=== PATIENT | female | born 1985 | race Caucasian/White ===

== ENCOUNTER 2021-05-09 20:23 | Emergency (ER) | payer MEDICAID ==
[~2021-05-09] VITALS: Ht 157.5 cm; Wt 101.6 kg
[2021-05-09 20:39] VITALS: BP_SYST 124
[2021-05-10] MEDS ORDERED: LIDOCAINE PATCH 5% 1 EA TP ONE ×2 (05:30→05:38)
[2021-05-10] MEDS ORDERED: KETOROLAC TROMETHAMINE 30 MG VIAL IM ONE (05:30)
[2021-05-10] MEDS ORDERED: CYCLOBENZAPRINE HCL 10 MG TABLET (FLEXERIL) PO ONE (05:30)
[2021-05-10] MEDS ORDERED: LIDO1ADH5 TP (05:49)
[2021-05-10] MEDS ORDERED: CYCL10TA24 PO (05:51)
[2021-05-10 06:01] VITALS: BP_SYST 127
== END 2021-05-10 06:00 | disposition home or self-care (01) ==
LOC: SED 20:23
DX: S16.1XXA Strain of muscle, fascia and tendon at neck level, initial encounter (principal); S80.01XA Contusion of right knee, initial encounter; Z88.6 Allergy status to analgesic agent; Z79.899 Other long term (current) drug therapy; W18.39XA Other fall on same level, initial encounter; Y93.89 Activity, other specified; Y92.89 Other specified places as the place of occurrence of the external cause; Y99.8 Other external cause status
CPT/HCPCS: 96372; 99283; J1885

== ENCOUNTER 2021-08-01 19:36 | Emergency (ER) | payer MEDICAID, SELFPAY ==
[~2021-08-01] VITALS: Ht 157.5 cm; Wt 97.5 kg
[~2021-08-01 19:36] MED LIST: CYCL10TA24 PO; LIDO1ADH5 TP
[2021-08-01 21:48] VITALS: BP_SYST 122
--- NOTE | 2021-08-02 03:00 | NUR ---
Called pt, no answer. Patient left without being seen. ER MD aware
[2021-08-02] MEDS ORDERED: BACL10TA PO (15:56)
[2021-08-02] MEDS ORDERED: ACET-2634 PO (15:56)
[2021-08-02] MEDS ORDERED: PRED20TA PO (15:56)
== END 2021-08-02 03:00 | disposition left against medical advice (07) ==
LOC: SED 19:36
DX: F41.9 Anxiety disorder, unspecified (principal); R11.2 Nausea with vomiting, unspecified; Z53.21 Procedure and treatment not carried out due to patient leaving prior to being seen by health care provider

== ENCOUNTER 2021-08-02 12:15 | Emergency (ER) | payer MEDICAID, SELFPAY ==
[~2021-08-02] VITALS: Ht 157.5 cm; Wt 97.5 kg
[2021-08-02 12:31] VITALS: BP_SYST 135
--- NOTE | 2021-08-02 12:31 | NUR ---
PT TRIAGED AND PLACED IN WAITING ROOM FOR AVAILABLE BED
--- NOTE | 2021-08-02 12:40 | NUR ---
PT CAME IN FROM FOR CHRONIC NECK PAIN AND LEFT SIDED ARM PAIN. PT IS AMBULATORY, [id number], VSS
--- NOTE | 2021-08-02 14:21 | NUR ---
ER at bedside examining patient.
[2021-08-02] MEDS ORDERED: FAMOTIDINE PF 20 MG/2 ML VIAL IVP ONE (14:30)
[2021-08-02] MEDS ORDERED: DIPHENHYDRAMINE INJ 50 MG/ML VIAL IVP ONE (14:30)
[2021-08-02] MEDS ORDERED: methylPREDNISolone SOD SUCC/PF 62.5 MG/ML VIAL IVP ONE (14:30)
[2021-08-02] MEDS ORDERED: MORPHINE 2 MG/ML INJ. SYRINGE IM ONE (14:45)
[2021-08-02] MEDS ORDERED: ACETAMINOPHEN 500 MG TABLET PO ONE (14:45)
[2021-08-02] MEDS ORDERED: PRED20TA PO (15:56)
[2021-08-02] MEDS ORDERED: BACL10TA PO (15:56)
[2021-08-02] MEDS ORDERED: ACET-2634 PO (15:56)
[2021-08-02 16:14] VITALS: BP_SYST 154
--- NOTE | 2021-08-02 16:15 | NUR ---
Patient given written and verbal discharge instructions and verbalizes understanding. ER Dr. Dubon discussed with patient the results and treatment provided. Patient in stable condition. ID arm band removed. Rx of Extra strenght Tylenol, Baclofen and Prednisone given. Patient educated on pain management and to follow up with PMD. Pain Scale 6. Opportunity for questions provided and answered. Medication side effect fact sheet provided.
== END 2021-08-02 16:15 | disposition home or self-care (01) ==
LOC: SED 12:15
DX: S16.1XXA Strain of muscle, fascia and tendon at neck level, initial encounter (principal); G89.29 Other chronic pain; M54.6 Pain in thoracic spine; Z88.6 Allergy status to analgesic agent; Z88.8 Allergy status to other drugs, medicaments and biological substances; Z79.899 Other long term (current) drug therapy; X50.9XXA Other and unspecified overexertion or strenuous movements or postures, initial encounter; Y93.89 Activity, other specified; Y92.89 Other specified places as the place of occurrence of the external cause; Y99.8 Other external cause status
CPT/HCPCS: 96372; 99283; J2270

== ENCOUNTER 2022-01-25 21:52 | Emergency (ER) | payer MEDICAID ==
[~2022-01-25] VITALS: Ht 157.5 cm; Wt 101.6 kg
[~2022-01-25 21:52] MED LIST changes: +ACET-2634 PO; +BACL10TA PO; +PRED20TA PO
--- NOTE | 2022-01-25 22:13 | NUR ---
Pt to ER via EMS from [facility] w/ c/o Right flank pain, RLQ abdominal pain 6/10 w/ generalized body aches, pt denies fevers, pt denies N/V/D, Pt states she has had dysuria x 2 days. Normal skin color for ethnicity. Respirations even and unlabored.
[2022-01-25 22:15] VITALS: BP_SYST 136
[2022-01-25] MEDS ORDERED: ACETAMINOPHEN 500 MG TABLET PO ONE (23:00)
[2022-01-25 23:35] LABS: BASOPHILS # (AUTO) 0.1 K/uL (0.0-0.2); BASOPHILS % (AUTO) 0.6 % (0.0-2.0); EOSINOPHILS # (AUTO) 0.2 K/uL (0.0-0.4); EOSINOPHILS % (AUTO) 3.1 % (0.0-4.0); HEMOGLOBIN 12.1 g/dL (12.0-16.0); LYMPHOCYTES # (AUTO) 2.3 K/uL (1.0-5.5); LYMPHOCYTES % (AUTO) 29.1 % (20.5-51.5); MEAN CORPUSCULAR HEMOGLOBIN 30 pg (27-31); MEAN CORPUSCULAR HGB CONC 34 % (32-36); MEAN CORPUSCULAR VOLUME 88 fL (79.0-98.0); MONOCYTES # (AUTO) 0.5 K/uL (0.0-1.0); MONOCYTES % (AUTO) 6.1 % (1.7-9.3); NEUTROPHILS # (AUTO) 4.7 K/uL (1.8-7.7); NEUTROPHILS % (AUTO) 61.1 % (40.0-70.0); PLATELET COUNT (AUTO) 359 K/uL (130-430); RED BLOOD CELL COUNT(AUTO) 4.07 MIL/uL (4.2-6.2); RED CELL DISTRIBUTION WIDTH 13.6 % (9.0-15.0); WHITE BLOOD COUNT (AUTO) 7.8 K/uL (4.8-10.8)
[2022-01-25 23:40] LABS: CALCIUM 8.7 mg/dL (8.4-11.0); CREATININE 0.72 mg/dL (0.55-1.30); POTASSIUM 3.6 mmol/L (3.5-5.1)
[2022-01-25 23:52] LABS: ALBUMIN 2.9 g/dL (3.4-4.8); TOTAL BILIRUBIN 0.3 mg/dL (0.0-1.0)
[2022-01-26] MEDS ORDERED: ACETAMINOPHEN 500 MG TABLET ONE (01:15)
[2022-01-26 02:27] LABS: BILIRUBIN,URINE NEGATIVE (NEGATIVE); CLARITY/URINE CLEAR (CLEAR); COLOR,URINE YELLOW (YELLOW); GLUCOSE,URINE NEGATIVE (NEGATIVE); KETONES,URINE NEGATIVE (NEGATIVE); LEUKOCYTE ESTERASE ,URINE NEGATIVE (NEGATIVE); NITRITE, URINE NEGATIVE (NEGATIVE); PROTEIN URINE NEGATIVE (NEGATIVE); UROBILINOGEN,URINE 0.2 (0.2-1.0)
[2022-01-26 02:29] LABS: BLOOD, URINE TRACE (NEGATIVE)
[2022-01-26 02:41] LABS: BACTERIA,URINE FEW /HPF (None Seen); RBC,URINE 0-3 /HPF (0-3); WBC,URINE 0-3 /HPF (0-3)
[2022-01-26] MEDS ORDERED: HYDR-3917 PO (04:52)
--- NOTE | 2022-01-26 07:30 | NUR ---
Report received from James WYNN; assumed cares at this time.
[2022-01-26 07:44] VITALS: BP_SYST 126
--- NOTE | 2022-01-26 08:50 | NUR ---
Report from Leeanna- jerman apparently discharged- however waiting for ambulance that will arrive at noon.
--- NOTE | 2022-01-26 09:18 | NUR ---
Patient stated that she needed to use the bathroom- placed on bedpan.
--- NOTE | 2022-01-26 09:20 | NUR ---
Given diabetic diet
--- NOTE | 2022-01-26 10:43 | NUR ---
Report to Rox WYNN- bernarda to send back.
== END 2022-01-26 12:00 | disposition home or self-care (01) ==
LOC: SED 21:52
DX: M54.50 Low back pain, unspecified (principal); G89.29 Other chronic pain; R10.31 Right lower quadrant pain; R35.89 Other polyuria; Z88.2 Allergy status to sulfonamides; Z88.6 Allergy status to analgesic agent; Z79.899 Other long term (current) drug therapy
CPT/HCPCS: 36415; 76376; 80053; 81000; 81025; 84702; 84703; 85025; 99284

== ENCOUNTER 2022-03-17 02:38 | Emergency (ER) | payer MEDICAID ==
[~2022-03-17] VITALS: Ht 157.5 cm; Wt 104.3 kg
[~2022-03-17 02:38] MED LIST changes: +HYDR-3917 PO
[2022-03-17 02:41] VITALS: BP_SYST 131
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
--- NOTE | 2022-03-17 03:22 | NUR ---
DR RODRIGUEZ AT BEDSIDE SPEAKING WITH PT, PT CRYING AND NOT WANTING TO ANSWER HIS QUESTIONS.
--- NOTE | 2022-03-17 03:31 | NUR ---
PT WANTS TO LEAVE, INSTRUCTING PT ON RISK OF LEAVING AMA, PT VERBALIZED, PT REFUSED TO SIGN AMA FORM.
--- NOTE | 2022-03-17 03:38 | NUR ---
Patient does not wish to proceed with medical care recommended by DR RODRIGUEZ. Patient given information related to possible complications, up to and including , which could occur as a result of leaving hospital at this time. Patient verbalizes understanding of risks involved leaving against medical advice. Patient has REFUSED TO signed AMA form.
[2022-03-18] MEDS ORDERED: ONDANSETRON 4 MG ODT TAB ONE (21:15)
== END 2022-03-17 03:38 | disposition left against medical advice (07) ==
LOC: SED 02:38
DX: M54.50 Low back pain, unspecified (principal); G89.29 Other chronic pain; M25.561 Pain in right knee; Z88.6 Allergy status to analgesic agent; Z88.8 Allergy status to other drugs, medicaments and biological substances; Z79.899 Other long term (current) drug therapy
CPT/HCPCS: 99281; Q0162

== ENCOUNTER 2022-03-17 05:37 | Emergency (ER) | payer MEDICAID ==
[~2022-03-17] VITALS: Ht 165.1 cm; Wt 99.8 kg
[2022-03-17 05:42] VITALS: BP_SYST 135
--- NOTE | 2022-03-17 05:47 | NUR ---
PT HERE VIA WHEELCHAIR FROM OUTSIDE THE HOSP AREA C/O GENRALIZED PAIN AND ASKING FOR RIDE HOME SHE STATED THAT IF SHE CAN HAVE TAXI. INFORMED PT THAT SHE NEEDS TO BE EVALUATED BY ER MD. OSMIN COLLAZO ATTEMPT TO TALK AND EVALUATE PT, SHE WAS ON HER PHONE AND NO RESPONSE FROM HER. PT REFUSED TO GO TO MAIN ER FOR FUTHER TREATMENT, SHE STATED SHE WANTS TO SIT IN TRIAGE, INFORMED PT THAT TRIAGE IS NOT FOR PT TO STAY. MULTIPLE ATTEMPTS AND EXPLANATION GIVEN, THAT SHE NEEDS TO BE SEEN FIRST AND RE EVALUATED, STILL REFUSING AT THIS TIME.
--- NOTE | 2022-03-17 05:55 | NUR ---
PATIENT STATES SHE DOES NOT WANT TO COME INSIDE TO BE SEEN, THIS CALENDER MACHINE OPERATOR HELPER EXPLAINED TO PATIENT THAT SHE NEEDS TO LEAVE OR COME INSIDE TO BE SEEN BY PHYSICIAN, THAT THE PHYSICIAN WILL NOT SEE HER OUTSIDE. PATIENT STATES, "I NEED FIVE MINUTES TO DECIDE"
--- NOTE | 2022-03-17 06:05 | NUR ---
SPOKE TO PATIENT TO SEE IF PATIENT WANTS TO COOPERATE AND BE SEEN BY PHYSICIAN OR IF PATIENT IS STILL TRYING TO GET A RIDE HOME. PATIENT STATES, "YOU ARE MEAN TO ME, I DON'T LIKE HOW I'M TREATED. YOU CALLED ALL THE TAXI COMPANIES AND TOLD THEM NOT TO PICK ME UP". EXPLAINED TO PATIENT THAT NO ONE CALLED ANY COMPANIES TO TELL THEM ABOUT HER AND THAT THE STAFF DID NOT HAVE TIME TO DO THIS. PATIENT STATES, "TAKE ME OUT OF THE SYSTEM, I DON'T WANT TO BE SEEN." PHYSICIAN MADE AWARE.
--- NOTE | 2022-03-17 06:19 | NUR ---
PATIENT WANTING TO ELOPE AND NOT BE SEEN, LOOKING FOR A TAXI RIDE AT THIS TIME ON HER MULTIPLE PHONES.
== END 2022-03-17 06:19 | disposition left against medical advice (07) ==
LOC: SED 05:37
DX: M54.50 Low back pain, unspecified (principal); G89.29 Other chronic pain; Z88.6 Allergy status to analgesic agent; Z88.8 Allergy status to other drugs, medicaments and biological substances; Z79.899 Other long term (current) drug therapy
CPT/HCPCS: 99281